=== PATIENT | male | born 1980 | race Hispanic/Latino ===

== ENCOUNTER 2016-11-20 20:09 | Emergency (ER) | payer OTHER ==
[~2016-11-20] VITALS: Ht 165.1 cm; Wt 81.0 kg
[2016-11-20 20:27] VITALS: BP 128/72; PULSE 82; RESP 16; O2SAT 97
--- NOTE | 2016-11-20 20:38 | ED.REPORT ---
HPI-General Illness Date of Service Nov 20, 2016 ED Provider: Dr. Petersen Pt is a 36 year old male with a hx of anxiety and acid reflux presenting to the ED complaining of 5/10 constant left sided chest pain onset yesterday, now radiating to the right side as well. Associated symptoms include pain with inspiration and lightheadedness. Denies any SOB, diarrhea, constipation, bloody stool, hematuria, or any other symptoms at this time. He denies any exacerbating factors or previous similar symptoms. The pt saw Dr. Edwards in GI today for his acid reflux but did not tell him about the chest pain. Nursing Notes Stated Complaint: CHEST TIGHTNESS Chief Complaint: Chest Pain-Non Cardiac Nature Nursing Notes Reviewed: Yes Allergies: Coded Allergies: No Known Allergies (Unverified Allergy, Unknown, 07/30/14) General Time Seen by MD: 20:38 Chief Complaint Chest pain Hx Obtained From: Patient Arrived By: Walk-in Sudden in Onset?: No Onset Occurred: Yesterday Symptom Duration: Since onset Location: : Chest Quality: Heaviness, Painful Severity: Current: Pain level 5 out of 10 Severity: Maximum: Moderate Recent Healthcare: No recent doctor visit, No recent hospitalization Similar Sx Previous: No Past Medical History Past Medical History Acid reflux Reports: Depression Past Surgical History denies Family History Denies Smoking History Never Smoker Ambulatory Status Independent Review of Systems Full Review of Systems Respiratory: Denies: Shortness of breath Cardiovascular: Reports: Chest pain GI: Denies: Abdominal pain, Bloody/tarry stool, Constipation, Diarrhea Male: Denies Hematuria Musculoskeletal: Denies: Extremity swelling Complete sys rev & neg: except as marked. Physical Exam Nursing note and vitals reviewed. Constitutional: Well-developed, well-nourished. Not diaphoretic. Head: Normocephalic and atraumatic. Mouth/Throat: Oropharynx is clear and moist. No oropharyngeal exudate. Eyes: EOM are normal. Pupils are equal, round, and reactive to light. Neck: Supple, no tracheal deviation. Cardiovascular: Normal rate, regular rhythm. Equal and intact distal pulses throughout. No peripheral edema. Pulmonary/Chest: Effort normal and breath sounds normal. No respiratory distress. Reproducible chest pain. Abdominal: Soft. No distension. There is no tenderness, rebound, or guarding. Bowel sounds present. Musculoskeletal: Range of motion grossly intact, moving all extremities. No edema or tenderness appreciated. Neurological: AOx3. Grossly nonfocal exam. Strength and sensation intact and equal to bilateral upper and lower extremities. Skin: Warm and dry, no rashes or pallor appreciated. Psychiatric: Appropriate mood and affect. Behavior appears normal. Vital Signs Vital Signs Date Time Temp Pulse Resp B/P Pulse Ox O2 Delivery O2 Flow Rate FiO2 11/20/16 23:58 71 18 121/65 96 11/20/16 22:59 66 18 117/91 99 Room Air 11/20/16 20:27 36.2 82 16 128/72 97 Room Air Initial VS: Reviewed Interpretation & Diagnostics Lab Results Interpretation Result Diagram: 11/20/16204511/20/162045 Test 11/20/16 20:46 White Blood Count 8.3th/mm3 (3.8-10.1) Red Blood Count 4.46mil/mm3 (4.40-5.80) Hemoglobin 13.5g/dL (13.8-17.2) Hematocrit 39.1% (41.0-50.0) Mean Corpuscular Volume 87.7fL (81-100) Mean Corpuscular Hemoglobin 30.3pg (27.0-35.0) Mean Corpuscular Hemoglobin Concent 34.5% (32.0-37.0) Red Cell Distribution Width 12.9% (12.3-15.4) Platelet Count 396bil/L (150-400) Neutrophils (%) (Auto) 65.8% (40-74) Lymphocytes (%) (Auto) 27.4% (14-46) Monocytes (%) (Auto) 4.3% (4-12) Eosinophils (%) (Auto) 1.9% (0-5) Basophils (%) (Auto) 0.4% (0-3) Sodium Level 141mEq/L (134-144) Potassium Level 3.5mEq/L (3.5-5.2) Chloride Level 102mEq/L (97-108) Carbon Dioxide Level 22mmol/L (18-29) Blood Urea Nitrogen 16mg/dL (6-20) Creatinine 0.79mg/dL (0.76-1.27) Estimat Glomerular Filtration Rate 117mL/min (>59) Glucose Level 164mg/dL (60-99) Calcium Level 9.2mg/dL (8.5-10.1) Magnesium Level 2.0mg/dL (1.6-2.6) Total Bilirubin 0.2mg/dL (0.0-1.2) Aspartate Amino Transf (AST/SGOT) 22U/L (0-50) Alanine Aminotransferase (ALT/SGPT) 32U/L (0-44) Alkaline Phosphatase 102U/L (25-150) Troponin T 0.010ug/L (0.0-0.011) Total Protein 7.4g/dL (6.4-8.4) Albumin 4.2g/dL (3.4-5.0) ECG Interpretation ECG Interpretation: Abnormal R-wave progression, early transition. Borderline ST elevation, anterolateral leads. Time: 20:49 Interpreted by: ED physician Normal ECG Interpretation: Normal rate (70), Normal sinus rhythm X-Ray Chest Interpretation Chest Xray Interpretation: IMPRESSION: No acute cardiopulmonary findings. Dictated by: Tara Dutta M.D. on 11/20/2016 at 22:02 View: Portable, 1 view Interpretation / Wet Read by: Interpret - Radiologist Re-Eval/Medical Decision Med Decision/Clinical Course Chest x ray negative. Troponin within normal limits. HEART score 1; doubt ACS. PERC negative; doubt PE. Not tearing pain though to pack. EKG w/o acute ischemic changes appreciated. Given this, reasonable to d/c home w/ careful return precautions, outpatient follow up for possible stress test and to follow up on today's visit. Patient agreeable to plan, no further questions. Time of Eval: 23:36 Patient Status: Condition improved Re-Evaluation/Progress Note: Discussed plan for discharge. Pt understands and agrees. Counseled Regarding: Diagnosis, Lab results, Need for follow-up, When/why to return to ED Discharge & Departure Primary Impression: Chest wall pain Disposition: Home Discharge Condition All VS Reviewed: Yes Condition: Improved Patient Instructions: Chest Pain (ED) Additional Instructions: Please follow up with your regular doctor in the next 1 to 2 days to discuss today's visit. I do not think that there's a serious cause for your chest pain today, but it's possible that this is something that could develop into something worse. Return to the ED immediately if you develop any worsening pain , shortness of breath, lightheadedness, weakness, or if there's anything else of concern to you. Referrals: Gildardo Narayanan MD (PCP) Karenibalcides Attestation Portions of this note were transcribed by Triny Clark. I, Dr. Petersen personally performed the history, physical exam and medical decision-making; I reviewed and confirmed the accuracy of the information in the transcribed note. Signed by: Mitra Leger, 11/20/2016 at 2340. copies to: Gildardo Narayanan MD, William B MD Nov 20, 2016 20:38 TRINY CLARK Nov 20, 2016 21:16
[2016-11-20 20:52] LABS: BASOPHILS % (AUTO) 0.4 % (0-3); EOSINOPHILS % (AUTO) 1.9 % (0-5); MONOCYTES % (AUTO) 4.3 % (4-12); Mean Corpuscular Hemoglobin 30.3 pg (27.0-35.0); Mean Corpuscular Volume 87.7 fL (81-100); NEUTROPHILS % (AUTO) 65.8 % (40-74); Platelet Count 396 bil/L (150-400)
[2016-11-20 21:11] LABS: TROPONIN T 0.01 ug/L (0.0-0.011)
--- NOTE | 2016-11-20 22:04 | DRSVH ---
PROCEDURE: X-RAY CHEST ONE VIEW, PORTABLE ([id number]) INDICATIONS: CHEST PAIN TECHNIQUE: One view of the chest was acquired. COMPARISON: None. FINDINGS: Surgical changes and devices: None. Lungs and pleura: No pleural effusions or pneumothorax. Lungs are clear. Mediastinum: Mediastinal contours appear normal. Heart size is normal. Bones and chest wall: No suspicious bony lesions. Overlying soft tissues appear unremarkable. IMPRESSION: No acute cardiopulmonary findings. Dictated by: Tara Dutta M.D. on 11/20/2016 at 22:02 Approved by: Tara Dutta M.D. on 11/20/2016 at 22:02
[2016-11-20 22:59] VITALS: BP 117/91; PULSE 66; RESP 18; O2SAT 99
[2016-11-20] MEDS ORDERED: Donnatal-Lido-Mylant 1:1:1 15 mL Syringe PO ONE (23:05)
[2016-11-20 23:58] VITALS: BP 121/65; PULSE 71; RESP 18; O2SAT 96
[2016-11-28] MEDS ORDERED: SERT20OR6 PO (10:22)
[2016-11-28] MEDS ORDERED: OMEP20TA24 PO (10:22)
[2016-11-28] MEDS ORDERED: CALC500T9 PO (10:22)
== END 2016-11-21 | disposition home or self-care (01) ==
LOC: MERGE 20:09 → SED 20:09
DX: R07.89 Other chest pain (principal); K21.9 Gastro-esophageal reflux disease without esophagitis
CPT/HCPCS: 36415; 71010; 80053; 83735; 84484; 85025; 93005; 99285; G0463

== ENCOUNTER 2016-11-29 00:47 | Day surgery (SDC) | payer OTHER ==
[~2016-11-29 00:47] MED LIST: CALC500T9 PO; OMEP20TA24 PO; SERT20OR6 PO
[2016-11-29] MEDS ORDERED: fentaNYL-PF 50 mCg/mL 2 mL Inj IVPUSH PRN (07:55)
[2016-11-29] MEDS ORDERED: Sodium Chloride LOK Flush 10 mL Syringe IV PRN (07:55)
[2016-11-29] MEDS ORDERED: 0.9% Sodium Chloride 1,000 ML IV PRN (07:55)
== END 2016-11-29 23:59 | disposition home or self-care (01) ==
LOC: MERGE 00:47 → END 00:47
PROVIDERS: ATTEND Internal Medicine
DX: K21.0 Gastro-esophageal reflux disease with esophagitis (principal); Z79.899 Other long term (current) drug therapy

== ENCOUNTER 2016-12-17 12:04 | Day surgery (SDC) | payer OTHER ==
[~2016-12-17] VITALS: Ht 165.1 cm; Wt 77.1 kg
[~2016-12-17 12:04] MED LIST changes: +0.9% Sodium Chloride 1,000 ML IV SCH; +Sodium Chloride LOK Flush 10 mL Syringe IV PRN; +fentaNYL-PF 50 mCg/mL 2 mL Inj IVPUSH PRN
[2016-12-17 13:16] VITALS: BP 119/72; PULSE 61; RESP 14; O2SAT 98
--- NOTE | 2016-12-17 13:58 | PCM.ENDEGD ---
EGD Date of Service: Dec 17, 2016 Physician Daniel Edwards MD Pre Procedure Diagnosis: Reflux Post Procedure Dx & Findings: Esophagitis healing ulcer Procedure Esophagogastroduodenoscopy PROCEDURE IN DETAIL: After proper sedation, Olympus video endoscope was inserted into patient's mouth and esophagus was successfully intubated. Scope introduced esophagus. Esophagus showed normal shiny whitish mucosa consistent with squamous cell component. Z line was inflamed and need hematemesis at 35 cm from the incisors. Also noted some scarring and healing superficial ulcers. Biopsies obtained. Obdulio further advanced to the stomach. Stomach showed normal shiny mucosa with normal appearing rugae folds without any ulcer mass erosion. Cardia fundus body antrum pylorus were all visualized. Retroflexion was done. Stomach was easily inflated and deflatable using air. Scope further advanced to the distal duodenum. Duodenum revealed normal villous structures with normal appearing folds without any mass ulcer erosion. Impression Esophagitis with healing superficial ulcers Recommendation Resume PPI indefinitely. Presedation Assessment Risks and Benefits Informed consent was obtained from the patient after all risks and benefits including but not limited to drug reaction, infection, pain, bleeding, perforation, as well as alternatives were discussed. Patient monitoring Continuous pulse oximetry, cardiac monitoring, blood pressure monitoring, IV access, and oxygen at 2L per nasal cannula. Periprocedural Fentanyl: Fentanyl 125mcg Incrementally Midazolam: Midazolam 6mg Incrementally Complications There were no periprocedural complications identified. Post Procedure Plan Post Procedure Recommendations 1. Restrict activities today. 2. Resume normal activities in the morning. 3. Resume medications. 4. GERD behavioral modification: - Avoid fatty, acidic, spicy, large meals - Do not lie down after meals - Do not eat or drink anything for at least 2 1/2 hours before going to bed at night - Discontinue tobacco and alcohol - Decrease or avoid caffeine - Avoid chocolate and mints - Decrease weight - Avoid aspirin and non steroidal anti-inflammatory agents (NSAID) such as Aleve, Advil, Mobic, Naproxen, Ibuprofen, etc 5. Add proton pump inhibitor. Take 30 minutes before 1st meal of the day. 6. Patient informed of normal post procedure side effects as bloating, drowsiness, blood streaking in the stool 7. If gastric biopsy reveal H.pylori, continue with appropriate treatment 8. If small bowel biopsy reveals celiac, continue with appropriate treatment 9. Please don't hesitate to call me with any questions Daniel Edwards MD Dec 17, 2016 13:58
[2016-12-17 14:05] VITALS: BP 112/63; PULSE 62; RESP 16; O2SAT 94
[2016-12-17 14:15] VITALS: BP 86/57; PULSE 69; RESP 16; O2SAT 98
[2016-12-17 14:25] VITALS: BP 111/66; PULSE 63; RESP 16; O2SAT 98
--- NOTE | 2016-12-20 16:52 | PATH ---
SURGICAL PATHOLOGY Attending Physician:Daniel Edwards M.D. CASE STATUS: Signed Out PATIENT NAME: LEONEL BEAL PID: [id number] : 1980 DATE COLLECTED:12/17/2016 00:00 SPECIMEN: Esophagus, Biopsy CLINICAL HISTORY: EPIGASTRIC PAIN 1). DISTAL ESOPHAGUS BIOPSY FINAL DIAGNOSIS: 1.DISTAL ESOPHAGUS, BIOPSY: SQUAMOCOLUMNAR JUNCTIONAL MUCOSA WITH CHRONIC ACTIVE INFLAMMATION INVOLVING GLANDULAR MUCOSA. Intraepithelial eosinophils are not increased. Negative for Helicobacter pylori by immunohistochemical stain. Negative for intestinal metaplasia. Negative for dysplasia and malignancy. [id number] GROSS DESCRIPTION: The specimen is received in one formalin filled container labeled with the patient's name, sublabeled "distal esophagus" and consists of a 0.2 x 0.2 x 0.2 CM portion of tissue which is entirely submitted in one cassette. 12/18/2016DC MICRO DESCRIPTION: An immunohistochemical stain was performed to evaluate for Helicobacter organisms. A control stain showed appropriate reactivity. This test was developed and its performance characteristics determined by [facility]. It has not been cleared or approved by the [place]. [place]. Food and Drug Administration. The FDA has determined that such clearance or approval is not necessary. This test is used for clinical purposes. It should not be regarded as investigational or for research. ICD-9 CODES: CPT CODES: 1: 60825, 45297 Electronically Signed Out Dexter Francis MD [facility] [address], [place] [address] Technical component performed at [facility], [address], [place], [address]
== END 2016-12-17 23:59 | disposition home or self-care (01) ==
LOC: END 12:04
PROVIDERS: ATTEND Internal Medicine
DX: K22.10 Ulcer of esophagus without bleeding (principal); K21.0 Gastro-esophageal reflux disease with esophagitis; F41.9 Anxiety disorder, unspecified
CPT/HCPCS: 43239; 99152; 99153; J2250; J3010; J7030